=== PATIENT | male | born 1950 | race Caucasian/White ===

== ENCOUNTER 2016-11-16 12:35 | Emergency (ER) | payer BC ==
[~2016-11-16 12:35] MED LIST: ASAB PO; ASPIRIN; ATV1 PO; COLCH6 PO; CREON DR 36,001 EACH PO; DOLOPHINE10 MG PO; INDO50 PO; LOP25 PO; LOP50 PO; MOMUD PO; MULTIPLE VIT PO; NORV5 PO; NOVOLOG SC; OXYCCODUDL PO; OXYCOD PO; PRIN20 PO; PROTONIX PO; REG5 PO; SPIRIVA INH; ULTRAM50 PO; ZOLOFT25 MG PO; [UNRECOGNIZED DRUG - REMARK] PO
[2016-11-16 13:39] LABS: HEMATOCRIT 28.6 % (40.0-51.0); HEMOGLOBIN 10.1 g/dL (13.6-17.8); MEAN CORPUS HGB CONC 35.3 g/dL (32.0-36.0); MEAN CORPUSCULAR HEMOGLOB 31.3 pg (26.0-34.0); MEAN PLATELET VOLUME 10.7 fL (9.2-13.0); RBC DISTRIBUTION WIDTH 15.8 % (12.0-16.0); RED CELL COUNT 3.23 10/6/uL (4.7-6.1)
[2016-11-16 13:43] LABS: ER CBC TAT 0 Hrs 09 Mins; MEAN CORPUSCULAR VOLUME 88.5 fL (80-100); WHITE BLOOD CELLS 8.1 10/3/uL (4.5-10.5)
[2016-11-16 13:44] LABS: MANUAL DIFF YES %; PLATELET COUNT 66 10/3/uL (150-400)
[2016-11-16 13:57] LABS: LACTATE 1.7 MMOL/L (0.3-2.4)
[2016-11-16 14:00] LABS: A/G RATIO 0.8 (0.7-1.9); ALBUMIN 2.9 G/DL (3.5-5.0); ALKALINE PHOSPHATASE 113 U/L (45-117); BAND NEUTROPHILS 20 %; BUN (BLOOD UREA NITROGEN) 11 MG/DL (6-23); CALCIUM, SERUM 8.3 MG/DL (8.5-10.4); CHLORIDE, SERUM 101 MMOL/L (96-112); CO2 (CARBON DIOXIDE) 27 MMOL/L (24-34); CREATININE 0.88 MG/DL (0.70-1.30); ER DIFF TAT 0 Hrs 26 Mins; GFR AFRICAN AMERICAN 105 ML/MIN (>=60); GFR NON AFRICAN AMERICAN 91 ML/MIN (>=60); GLOBULIN 3.7 G/DL (2.5-4.1); GLUCOSE, SERUM 104 MG/DL (60-99); LYMPHOCYTES 5 %; LYMPHOCYTES ABSOLUTE (CALC) 0.41 10/3/uL (0.67-4.30); MONOCYTES 5 %; MONOCYTES ABSOLUTE (CALC) 0.41 10/3/uL (0.21-1.20); NEUTROPHILS ABSOLUTE (CALC) 7.29 10/3/uL (2.02-8.40); PLATELET ESTIMATE DEC (ADEQUATE); POTASSIUM, SERUM 3.7 MMOL/L (3.5-5.3); SEGMENTED NEUTROPHIL (0) 70 %; SGOT(AST) 38 U/L (5-40); SGPT(ALT) 26 U/L (5-65); SODIUM, SERUM 136 MMOL/L (135-148); TOTAL NUCLEATED CELLS 100; TOTAL PROTEIN 6.6 G/DL (6.0-8.5)
[2016-11-16 14:01] LABS: MACROCYTES 1+ (5-10/OIF) (0-5/OIF); POLYCHROMASIA 1+ (2-5/OIF) (0-1/OIF)
[2016-11-16 14:04] LABS: TOTAL BILIRUBIN 0.7 MG/DL (0-1.2)
[2016-11-16 14:26] LABS: INTERNATIONAL NORMAL RATI 1.4 UNITS (-)
[2016-11-16 14:27] LABS: PARTIAL THROMBO TIME 37.4 SEC (22.5-37.2)
[2016-11-16 15:04] LABS: ASCORBIC ACID (UR NOT ORDER) NEG (NEG); BILIRUBIN, URINE NEGATIVE (NEG); ER URINALYSIS TAT 0 Hrs 14 Mins; KETONE, URINE NEGATIVE (NEG); LEUKOCYTE ESTERASE(NOT OR NEG (NEG); NITRITE (URINE) NEG (NEG); WBC (NOT ORDERED) (RFLEX) 1 (0-5)
== END 2016-11-16 16:43 | disposition home or self-care (01) ==
LOC: ER 12:35
PROVIDERS: Emergency Medicine
DX: R50.9 Fever, unspecified (principal); C25.9 Malignant neoplasm of pancreas, unspecified; J44.9 Chronic obstructive pulmonary disease, unspecified; G47.30 Sleep apnea, unspecified; Z88.8 Allergy status to other drugs, medicaments and biological substances; Z79.899 Other long term (current) drug therapy
CPT/HCPCS: 71010; 80053; 81001; 83605; 85025; 85610; 85730; 87040; 93005; 96365; 96366; 96367; 96375; 99285; A9270-GY; J0692; J1170; J2405; J3370